=== PATIENT | female | born 1970 | race Caucasian/White ===

== ENCOUNTER 2016-12-06 15:48 | Outpatient (CLI) | payer BC ==
--- NOTE | 2016-12-06 17:18 | DIAGNOSTIC IMAGING REPORT ---
PROCEDURE: US COMPLETE PELVIC W/TRANSVAG INDICATION: PELVIC PAIN TECHNIQUE: Transabdominal and endovaginal dickey scale and color Doppler sonographic images of the female pelvis were obtained. COMPARISON: None. FINDINGS: TRANSABDOMINAL SCANS: The uterus is of normal size 10.4 x 7.2 x 9.4 cm Kidneys are normal. TRANSVAGINAL SCANS: The uterus is anteverted. Myometrium contains a 10 x 9 x 7 cm fibroid which is on the right and posterior at the lower uterine segment. The endometrium measures 10 mm. Right ovary is normal measuring 3.9 x 4.4 x 1 cm. There is a 2.1 cm follicle. The left ovary is normal measuring 2.9 x 2.5 x 1.8 cm. IMPRESSION: 1. 10 x 9 x 7 cm uterine fibroid.
== END 2016-12-06 23:00 ==
LOC: US SRH 15:48
DX: D25.9 Leiomyoma of uterus, unspecified (principal)